=== PATIENT | female | born 2000 | race Hispanic/Latino ===

== ENCOUNTER → 2020-08-12 | Outpatient (REF) | payer OTHER | LOC: M LAB REF 09:48 | PROVIDERS: ATTEND Physician Assistant | DX: R30.0 Dysuria (principal) ==

== ENCOUNTER 2020-09-02 18:26 | Emergency (ER) | payer OTHER ==
[~2020-09-02] VITALS: Ht 160 cm; Wt 101.6 kg
[2020-09-02] MEDS ORDERED: METR-265 (18:44)
[2020-09-02] MEDS ORDERED: TERC0.4C2 (18:44)
[2020-09-02 19:30] LABS: HEMATOCRIT 38.4 % (36.0-47.0); HEMOGLOBIN 12.8 g/dl (12.0-15.5); MEAN CORPUSCULAR HEMOGLOBIN 31.1 pg (27.0-33.0); MEAN CORPUSCULAR HGB CONC 33.3 g/dl (32.0-36.5); MEAN CORPUSCULAR VOLUME 93.4 fl (80.0-96.0); PLATELET COUNT, AUTOMATED 202 10^3/uL (150-450); RED BLOOD COUNT 4.11 10^6/uL (4.00-5.40)
[2020-09-02 21:15] VITALS: BP 131/75
--- NOTE | 2020-09-02 21:16 | REPVR ---
PROCEDURE INFORMATION: Exam: US First Trimester, Transabdominal Exam date and time: 09/02/2020 8:53 PM Age: 20 years old Clinical indication: Lmp or gestational age (in weeks): 06/26/20; Antepartum complications; Bleeding; complicated by abdominal or pelvic pain; Lower; First trimester; ; Additional info: Pelvic pain/bleeding; Lmp-06/26/20 TECHNIQUE: Imaging protocol: Real-time transabdominal obstetrical ultrasound of the maternal pelvis and a first trimester , less than 14 weeks 0 days, with image documentation. COMPARISON: No relevant prior studies available. FINDINGS: Gestation: There is a gestational sac within the uterus with a pole. Mean sac size is 1.8 cm suggesting an age of 6 weeks 5 days. Embryonic/ heart rate: No cardiac activity is identified. BIOMETRY: Acacia Villas-Rump length: Acacia Villas-rump length is 4.0 mm suggesting an age of 6 weeks 3 days. MATERNAL: Uterus: The uterus measures 8.7 cm in its cephalocaudad dimension and 4.4 x 5.7 cm in its AP and lateral dimensions transvaginal. Cervix: Unremarkable. Right adnexa: The right ovary measures 4 5.6 x 4.7 x 5.6 cm. There is a mildly echogenic heterogeneous mass measuring 3.8 x 4.2 x 4.5 cm with right ovarian arterial and venous blood flow. Left adnexa: The left ovary measures 3.1 x 2.6 x 3.1 cm with color flow and arterial and venous waveforms. Intraperitoneal space: No intraperitoneal free fluid. IMPRESSION: 1. Gestational sac within the uterus with pole with crown-rump length of 4.0 mm suggesting an age of 6 weeks 3 days. No heartbeat is identified at this time. This is less than the requisite 7 mm for diagnosis of failed . Follow-up in 1 week may be of benefit for further evaluation. 2. Echogenic heterogeneous mass of the right ovary measuring 3.8 x 4.2 x 4.5 cm and may reflect a dermoid. Electronically signed by: Robinson Mcgarry On 09/02/2020 21:16:17 PM
== END 2020-09-02 21:38 | disposition home or self-care (01) ==
LOC: M ED 18:26
DX: O20.0 Threatened abortion (principal); Z3A.01 Less than 8 weeks gestation of pregnancy; O34.81 Maternal care for other abnormalities of pelvic organs, first trimester; Z88.0 Allergy status to penicillin

== ENCOUNTER → 2020-09-18 | Outpatient (REF) | payer OTHER ==
[~2020-09-18] MED LIST: METR-265; TERC0.4C2
== END ==
LOC: M PLALAB 15:07
PROVIDERS: ATTEND Advanced Practice Midwife
DX: O03.9 Complete or unspecified spontaneous abortion without complication (principal)
CPT/HCPCS: 84702; G0463

== ENCOUNTER → 2020-09-24 | Outpatient (REF) | payer OTHER | LOC: M PLALAB 08:53 | PROVIDERS: ATTEND Advanced Practice Midwife | DX: O03.9 Complete or unspecified spontaneous abortion without complication (principal) ==

== ENCOUNTER → 2020-11-07 | Outpatient (REF) | payer OTHER | LOC: M SFHCWAGY 09:40 | PROVIDERS: ATTEND Nurse Practitioner Women's Health | DX: R10.2 Pelvic and perineal pain (principal); Z11.3 Encounter for screening for infections with a predominantly sexual mode of transmission ==

== ENCOUNTER → 2020-11-20 | Outpatient (CLI) | payer OTHER ==
--- NOTE | 2020-11-20 10:52 | REP ---
INDICATION: R10.2 PELVIC PAIN. COMPARISON: 09/02/2020. TECHNIQUE: Transabdominal and transvaginal scanning performed. FINDINGS: Uterine dimensions are 7.8 x 4.3 x 4.2 cm. Endometrial echo is 10 mm in AP dimension and centrally placed. The endometrium has a trilaminar appearance. The bladder measures 4.3 x 2.1 x 6.3 cm. No normal right ovarian tissue is seen. There is again a complex echogenic mass in the right adnexa measuring 4.5 x 3.6 x 4.6 cm, seen on the prior study and most likely representing a dermoid. The left ovary dimensions are 2.9 x 2.6 x 3.6 cm. Blood flow is seen in the left ovary with duplex Doppler evaluation, with no torsion. A dominant follicle is seen in the left ovary measuring 2.2 cm in maximum diameter. There is a small amount of free fluid. IMPRESSION: Echogenic right adnexal mass is again noted unchanged, most likely representing a dermoid. Dominant follicle left ovary 2.2 cm in diameter with no torsion left ovary. Small amount of free fluid. <Electronically signed by Giovani Boogie > 11/20/20 [id number]
== END ==
LOC: M WHC 07:59
PROVIDERS: ATTEND Nurse Practitioner Women's Health
DX: R10.2 Pelvic and perineal pain (principal)

== ENCOUNTER → 2021-02-10 | Outpatient (CLI) | payer OTHER ==
--- NOTE | 2021-02-10 09:17 | REP ---
INDICATION: N83.201 R OVARIAN CYST COMPARISON: 11/20/2020 TECHNIQUE: Transabdominal pelvic ultrasound followed by transvaginal examination for better evaluation of the endometrium and adnexa with color Doppler evaluation of the ovaries. FINDINGS: Bladder is unremarkable and measures 4.6 x 2.2 x 3.7 cm. Normal anteverted uterus measures 8.1 x 3.7 x 4.9 cm. The endometrial complex measures 8 thickness. Small sub cm nabothian cysts and lower uterine segment. Bilateral ovaries are normal in appearance and vascularity without evidence for torsion. Right ovary measures 5.0 x 4.3 x 5.1 cm and again includes 4.6 x 4.1 x 4.4 cm complex lesion unchanged and likely representing dermoid; R I = 0.68. Left ovary measures 2.8 x 2.0 x 3.0 cm and includes 1.8 cm dominant follicle; R I = 0.41. No pelvic fluid. IMPRESSION: 1. Stable complex right ovarian/adnexal lesion likely representing dermoid. <Electronically signed by Juan Ramon Collins > 02/10/21 0914
== END ==
LOC: M WHC 08:31
PROVIDERS: ATTEND Obstetrics & Gynecology
DX: N83.201 Unspecified ovarian cyst, right side (principal)

== ENCOUNTER → 2021-03-09 | Outpatient (CLI) | payer OTHER ==
[~2021-03-09] MED LIST changes: +TERC0.4C10; -TERC0.4C2
== END ==
LOC: M LABSMTC 09:43
PROVIDERS: ATTEND Anesthesiology
DX: Z01.818 Encounter for other preprocedural examination (principal); Z11.52 Encounter for screening for COVID-19

== ENCOUNTER 2021-03-13 11:22 | Day surgery (SDC) | payer OTHER ==
[~2021-03-13] VITALS: Ht 160 cm; Wt 104.8 kg
[~2021-03-13 11:22] MED LIST changes: +ACETAMINOPHEN 1000MG 100ML IV BTL (OFIRMEV) (J0131 PER 10MG) As Ordered ONE; +HYDROmorphone HCL 2 MG/ML 1ML VIAL (J1170) As Ordered ONE; +KETOROLAC 60MG 2ML VIAL As Ordered ONE; +LIDOCAINE 2% 100MG/5ML SDV (FOR ANES.) As Ordered ONE; +LR 1,000 ML IV ONE; +MIDAZOLAM INJ 2MG/2ML VIAL (J2250 PER 1MG) As Ordered ONE; +ONDANSETRON 4MG/2ML VIAL As Ordered ONE; +ROCURONIUM BROMIDE 50 MG/5 ML VIAL As Ordered ONE; +SUGAMMADEX SODIUM 500 MG/5 ML VIAL (BRIDION) As Ordered ONE; +dexameTHASONE 4 MG/ML 1ML VIAL (J1100 PER 1MG) As Ordered ONE; +fentaNYL 100 MCG/2 ML INJECTION (J3010) As Ordered ONE; +propofoL 200 MG/20 ML VIAL As Ordered ONE
[2021-03-13 11:57] LABS: HEMATOCRIT 41.9 % (36.0-47.0); HEMOGLOBIN 13.7 g/dl (12.0-15.5); MEAN CORPUSCULAR HEMOGLOBIN 30.2 pg (27.0-33.0); MEAN CORPUSCULAR HGB CONC 32.7 g/dl (32.0-36.5); MEAN CORPUSCULAR VOLUME 92.5 fl (80.0-96.0); PLATELET COUNT, AUTOMATED 188 10^3/uL (150-450); RED BLOOD COUNT 4.53 10^6/uL (4.00-5.40); WHITE BLOOD COUNT 7.9 10^3/uL (4.0-10.0)
[2021-03-13 12:24] LABS: HCG, SERUM QUALITATIVE NEGATIVE (NEGATIVE)
[2021-03-13] MEDS ORDERED: BUPIVACAINE HCL 0.25% 30ML VIAL As Ordered ONE (12:47)
[2021-03-13] MEDS ORDERED: SILVER NITRATE APPLICATOR As Ordered ONE (12:47)
[2021-03-13] MEDS ORDERED: METHYLENE BLUE 0.5% (5MG/ML) 10 ML AMP (PROVAYBLUE) As Ordered ONE (12:48)
[2021-03-13] MEDS ORDERED: ROCURONIUM BROMIDE 50 MG/5 ML VIAL As Ordered ONE (13:47)
[2021-03-13] MEDS ORDERED: fentaNYL 100 MCG/2 ML INJECTION (J3010) As Ordered ONE (15:44)
[2021-03-13] MEDS: fentaNYL 100 MCG/2 ML INJECTION (J3010) IV PRN ×2 (16:00→16:15)
[2021-03-13] MEDS ORDERED: LR 1,000 ML IV SCH ×2 (16:15)
[2021-03-13] MEDS ORDERED: oxyCODONE 5MG TAB PO PRN (16:15)
[2021-03-13] MEDS ORDERED: MEPERIDINE INJ 25 MG/ML VIAL (J2175) IV PRN (16:15)
[2021-03-13] MEDS ORDERED: ONDANSETRON 4MG/2ML VIAL IV PRN (16:15)
--- NOTE | 2021-03-13 16:59 | ROOPDOC ---
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 PROCEDURE: Robotic-assisted laparoscopic right ovarian cystectomy SURGEON: Serge Naylor D.O. FACOG CERTIFIED LACTATION EDUCATOR: None ANESTHESIA: General endotracheal. ESTIMATED BLOOD LOSS: Approximately 50 mL. FLUIDS REPLACED: 1600 mL LR URINE OUTPUT: 400 mL COMPLICATIONS: None. FINDINGS: Right ovarian cyst approximately 5-6 cm in greatest dimension. Upon gross inspection the ovarian cyst was consistent with a mature cystic teratoma/dermoid cyst. The cyst was removed from the ovary intact. No intraperitoneal spillage. Uterus was approximately 8 centimeters in greatest dimension. Normal-appearing left ovary/left adnexa. Normal-appearing right fallopian tube. PREOPERATIVE ANTIBIOTIC PROPHYLAXIS: None indicated SPECIMEN(S): Right ovarian cystic mass DESCRIPTION OF PROCEDURE: The patient was counseled, consented on the respective benefits, indications, alternatives of procedure. Informed consent was obtained. She was taken to the operating room with an IV running. She was placed on the operating table in dorsal supine position. Gen. anesthesia was administered and the airway was secured without any difficulty. She was placed in the low lithotomy position. She was prepared and draped in the normal sterile fashion. A time out was performed per protocol. A Begum catheter was placed under sterile conditions. A sterile speculum was placed resulting in good visualization of the cervix. A single-tooth tenaculum was used to grasp the anterior lip cervix. The cervix was sequentially dilated with King dilators. A Zumi uterine manipulator was placed without any difficulty. The single-tooth tenaculum was removed, as well as the speculum. A sterile glove switch was performed. Attention was turned to the abdomen. An 8mm incision was made in the umbilicus, and through this incision a Veress needle was inserted into the intraperitoneal cavity. Intraperitoneal placement was confirmed with ease of flow of normal saline, positive drop test, no return on aspiration, and an opening pressure of less than 10 mmHg upon initial insufflation. The abdomen was insufflated with 2 L of gas. The Veress needle was removed. Through this incision, the robotic trochar/cannula was inserted into the intraperitoneal cavity under direct visualization. No incidental ble eding nor injury was noted. Patient was placed in 30 Trendelenburg. The right and left trocars/cannulas were placed on both the right and left side through 8 mm incisions, guided by laparoscopic visualization. No incidental bleeding nor injury was noted. The robot was docked in typical fashion. The instruments were inserted, guided by laparoscopic visualization. My attention was turned to the robotic console. The monopolar lissa and [place] forceps were used to dissect the cystic wall off the ovarian cortex. The cyst was detached from the ovary with it's cystic wall intact. This was done using meticulous sharp and blunt dissection along with the monopolar lissa. The cystic mass was placed in the anterior cul-de-sac. The ovarian cortex was reapproximated with 2-0 Vicryl V lock suture. Excellent hemostasis of the right ovary was noted. The robotic instruments were removed from the abdomen and the robot was un-docked. The cystic mass was put in a laparoscopic containment bag,then brought out of the abdomen through the left sided incision (the cystic mass was intentionally ruptured within the bag to reduce it's size to allow for it's removal). This incision had to be slightly extended, 5-10mm. Thus, this incision was closed internally with the Ayo Alex technique. The pelvis was irrigated and excellent hemostasis was noted after suctioning. The laparoscopic instruments were removed. The gas was released from the abdomen and the patient was taken out of Trendelenburg. The skin incisions were closed with 4-0 Monocryl in subcuticular fashion. The Begum catheter was removed. The uterine manipulator was removed. Minimal vaginal bleeding was noted. Sponge, needle and instrument counts were correct per protocol. The patient tolerated the entire procedure very well. She was transferred to the PACU in good and stable condition. DO HENRY Cho JONATHAN R. DO Mar 13, 2021 16:59
[2021-03-13] MEDS ORDERED: OXYC1TAB23 PO (17:02)
[2021-03-13] MEDS ORDERED: IBUP80TA PO (17:03)
[2021-03-13] MEDS ORDERED: COLA100C5 PO (17:03)
[2021-03-13 18:20] VITALS: BP 131/79
[2021-03-14] MEDS ORDERED: DESFLURANE 240 ML INHALANT As Ordered ONE ×2 (06:10→06:12)
[2021-03-14] MEDS ORDERED: SEVOFLURANE INHAL SOLN 250 ML BTL As Ordered ONE (06:12)
== END 2021-03-13 18:24 | disposition home or self-care (01) ==
LOC: M SDC 11:22
PROVIDERS: ATTEND Obstetrics & Gynecology
DX: D27.0 Benign neoplasm of right ovary (principal); Z88.0 Allergy status to penicillin
CPT/HCPCS: 36415; 58662; 84703; 85027; 86850; 86900; 86901; 88305; J0131; J1100; J1170; J1885; J2250; J2405; J3010; S2900

== ENCOUNTER → 2021-06-23 | Outpatient (CLI) | payer OTHER ==
[~2021-06-23] MED LIST changes: -ACETAMINOPHEN 1000MG 100ML IV BTL (OFIRMEV) (J0131 PER 10MG) As Ordered ONE; +COLA100C5 PO; -HYDROmorphone HCL 2 MG/ML 1ML VIAL (J1170) As Ordered ONE; +IBUP80TA PO; -KETOROLAC 60MG 2ML VIAL As Ordered ONE; -LIDOCAINE 2% 100MG/5ML SDV (FOR ANES.) As Ordered ONE; -LR 1,000 ML IV ONE; -MIDAZOLAM INJ 2MG/2ML VIAL (J2250 PER 1MG) As Ordered ONE; -ONDANSETRON 4MG/2ML VIAL As Ordered ONE; +OXYC1TAB23 PO; -ROCURONIUM BROMIDE 50 MG/5 ML VIAL As Ordered ONE; -SUGAMMADEX SODIUM 500 MG/5 ML VIAL (BRIDION) As Ordered ONE; -dexameTHASONE 4 MG/ML 1ML VIAL (J1100 PER 1MG) As Ordered ONE; -fentaNYL 100 MCG/2 ML INJECTION (J3010) As Ordered ONE; -propofoL 200 MG/20 ML VIAL As Ordered ONE
[2021-06-23 14:07] LABS: HEMATOCRIT 37.4 % (36.0-47.0); HEMOGLOBIN 12.6 g/dl (12.0-15.5); MEAN CORPUSCULAR HEMOGLOBIN 31.4 pg (27.0-33.0); MEAN CORPUSCULAR HGB CONC 33.7 g/dl (32.0-36.5); MEAN CORPUSCULAR VOLUME 93.3 fl (80.0-96.0); PLATELET COUNT, AUTOMATED 189 10^3/uL (150-450); RED BLOOD COUNT 4.01 10^6/uL (4.00-5.40); WHITE BLOOD COUNT 8.3 10^3/uL (4.0-10.0)
[2021-06-23 14:28] LABS: GLUCOSE CHALLENGE TEST 1 HOUR 157 MG/DL (LESS THAN 140)
[2021-06-23 14:32] LABS: HEMOGLOBIN A1c 5.2 %
[2021-06-23 15:55] LABS: GC DNA AMPLIFICATION NEGATIVE (NEGATIVE)
== END ==
LOC: M PLALAB 10:47
PROVIDERS: ATTEND Advanced Practice Midwife
DX: Z36.89 Encounter for other specified antenatal screening (principal); Z3A.08 8 weeks gestation of pregnancy

== ENCOUNTER → 2021-07-01 | Outpatient (CLI) | payer OTHER ==
[2021-07-01 10:18] LABS: HEPATITIS C VIRUS ABY INDEX < 0.0 INDEX (<0.8); HIV 1&2 SCREEN CENTAUR NEGATIVE (NEGATIVE)
== END ==
LOC: M LAB 07:22
PROVIDERS: ATTEND Advanced Practice Midwife
DX: O99.211 Obesity complicating pregnancy, first trimester (principal); Z3A.08 8 weeks gestation of pregnancy

== ENCOUNTER → 2021-07-21 | Outpatient (CLI) | payer OTHER | LOC: M PLALAB 08:47 | PROVIDERS: ATTEND Specialist | DX: Z34.81 Encounter for supervision of other normal pregnancy, first trimester (principal); Z36.89 Encounter for other specified antenatal screening; Z3A.12 12 weeks gestation of pregnancy ==

== ENCOUNTER → 2022-08-11 | Outpatient (REF) | payer OTHER | LOC: M PLALAB 15:10 | PROVIDERS: ATTEND Nurse Practitioner Family | DX: Z53.9 Procedure and treatment not carried out, unspecified reason (principal) ==

== ENCOUNTER → 2023-06-29 | Outpatient (CLI) | payer OTHER | LOC: M PLAIMG 11:22 | PROVIDERS: ATTEND Nurse Practitioner Adult Health | DX: M54.50 Low back pain, unspecified (principal) ==

== ENCOUNTER → 2023-10-13 | Outpatient (CLI) | payer OTHER ==
[2023-10-13 15:01] LABS: HEMATOCRIT 35.4 % (36.0-47.0); HEMOGLOBIN 11.8 g/dl (12.0-15.5); MEAN CORPUSCULAR HEMOGLOBIN 30.9 pg (27.0-33.0); MEAN CORPUSCULAR HGB CONC 33.3 g/dl (32.0-36.5); MEAN CORPUSCULAR VOLUME 92.7 fl (80.0-96.0); PLATELET COUNT, AUTOMATED 160 10^3/uL (150-450); RED BLOOD COUNT 3.82 10^6/uL (4.00-5.40); WHITE BLOOD COUNT 7.2 10^3/uL (4.0-10.0)
[2023-10-13 15:37] LABS: HIV 1&2 SCREEN NEGATIVE (NEGATIVE)
[2023-10-13 15:47] LABS: HEPATITIS C VIRUS ABY INDEX 0.03 INDEX (<0.8)
[2023-10-13 17:17] LABS: CHLAMYDIA DNA AMPLIFICATION NEGATIVE (NEGATIVE); GC DNA AMPLIFICATION NEGATIVE (NEGATIVE)
== END ==
LOC: M PLALAB 10:14
PROVIDERS: ATTEND Advanced Practice Midwife
DX: Z34.81 Encounter for supervision of other normal pregnancy, first trimester (principal)

== ENCOUNTER → 2023-11-14 | Outpatient (CLI) | payer OTHER | LOC: M PLALAB 09:47 | PROVIDERS: ATTEND Obstetrics & Gynecology | DX: Z36.9 Encounter for antenatal screening, unspecified (principal) ==

== ENCOUNTER → 2023-11-21 | Outpatient (CLI) | payer OTHER | LOC: M WHC 10:06 | PROVIDERS: ATTEND Obstetrics & Gynecology | DX: Z34.92 Encounter for supervision of normal pregnancy, unspecified, second trimester (principal) ==